=== PATIENT | female | born 2005 | race Two or more races ===

== ENCOUNTER 2024-11-24 01:18 | Emergency (ER) | payer OTHER ==
[~2024-11-24] VITALS: Ht 152.4 cm; Wt 47.6 kg
[2024-11-24] MEDS ORDERED: RINGERS SOLUTION,LACTATED 1,000 ML IV STA (02:01)
[2024-11-24] MEDS ORDERED: KETOROLAC TROMETHAMINE 15 MG VIAL IV STA (02:02)
[2024-11-24] MEDS ORDERED: PROMETHAZINE HCL 25 MG/ML AMPUL IM STA (02:02)
[2024-11-24] MEDS ORDERED: ONDANSETRON HCL 2 MG/ML VIAL IV STA (02:03)
[2024-11-24] MEDS ORDERED: FAMOTIDINE/PF 20 MG/2 ML VIAL IV PUSH STA (02:03)
[2024-11-24] MEDS ORDERED: PROMETHAZINE HCL 25 MG/ML AMPUL ONE (02:20)
[2024-11-24] MEDS ORDERED: FAMOTIDINE/PF 20 MG/2 ML VIAL ONE (02:20)
[2024-11-24] MEDS ORDERED: KETOROLAC TROMETHAMINE 30 MG VIAL ONE (02:20)
[2024-11-24] MEDS ORDERED: ONDANSETRON HCL 2 MG/ML VIAL ONE (02:20)
[2024-11-24 02:21] LABS: BASO % 0.2 % (0.1-1.2); EOS # 0.01 (0.04-0.54); EOS % 0.2 % (0.7-7.0); LYMPH # 0.50 (1.18-3.74); LYMPH % 9.1 % (19.3-53.1); MEAN PLATELET VOLUME 9.50 fl (9.4-12.4); MONO # 0.38 (0.24-0.82); MONO % 6.9 % (4.7-12.5); NEUT # 4.60 (1.56-6.13); NEUT % 83.4 % (34.0-71.1); RED CELL DISTRIBUTION WIDTH 14.9 % (11.6-14.4)
[2024-11-24 02:54] LABS: BUN CREA RATIO 12.0 (7.0-25.0); CREATININE SERUM 0.6 mg/dL (0.55-1.02); GFR 127.45; GLUCOSE FASTING 116.0 mg/dL (65-100); OSMOLALITY SERUM 275.0 MOSM/KG (275-295)
[2024-11-24 03:41] LABS: COVID-19 AG NEGATIVE (NEGATIVE)
[2024-11-24 06:32] LABS: URINE APPEARANCE Clear; URINE BILIRRUBIN Negative (NEGATIVE); URINE BLOOD Large; URINE COLOR Yellow; URINE GLUCOSE Negative (NEGATIVE); URINE LEUKOCYTE Negative; URINE NITRATE Negative; URINE PROTEIN 30 (NEGATIVE); URINE UROBILINOGEN 1.0 E.U./dl
[2024-11-24 06:33] LABS: URINE BACTERIA 793.1 uL (0.0-1933); URINE CAST 1.75 uL (0.0-1.40); URINE EPITHELIAL CELLS 67.6 uL (0.0-38.8); URINE RBC 27.1 uL (0.0-20.8); URINE WBC 30.4 uL (0.0-23.2)
[2024-11-24 06:55] LABS: URINE KETONE 40 (NEGATIVE)
[2024-11-24 06:58] LABS: TYPE CELLS SQUAMOUS
[2024-11-24 06:59] LABS: URINE MUCUS MODERATE
[2024-11-24] MEDS ORDERED: DEXTROSE 5 % AND 0.9 % NACL 1,000 ML IV SCH (07:45)
[2024-11-24] MEDS ORDERED: ZOFRAN8 MG PO (11:54)
[2024-11-24 12:12] VITALS: BP 93/64; O2SAT 99
== END 2024-11-24 12:14 | disposition home or self-care (01) ==
LOC: ER 01:18 → EMR PED 01:34 → ER 01:34 → EMR PED 12:14
DX: B34.9 Viral infection, unspecified (principal); Z20.822 Contact with and (suspected) exposure to COVID-19